=== PATIENT | male | born 1960 | race Caucasian/White ===

== ENCOUNTER 2023-08-21 00:55 | Inpatient (IN) | payer MEDICAID ==
[~2023-08-21] VITALS: Ht 188 cm; Wt 75.7 kg
[2023-08-21] VITALS (67 sets, daily range): BP systolic 48–201; BP diastolic 32–113; PULSE 37–114; RESP 0–22; TEMP 90.2–100.4
[2023-08-21] MEDS: DIPHENHYDRAMINE 50MG/ML VIAL IV ONE (01:59)
[2023-08-21] MEDS: LORAZEPAM 2MG/ML INJ IV ONE (01:59)
[2023-08-21] MEDS: HALOPERIDOL LACTATE 5MG/ML VIAL IM ONE (01:59)
[2023-08-21 02:11] LABS: BASOPHILS % 0.3 % (0.0-2.0); DIFFERENTIAL COMMENT 0; HEMATOCRIT. 42.5 % (42.0-52.0); HEMOGLOBIN. 12.9 g/dL (14.0-18.0); LYMPHOCYTES % 13.4 % (20.0-50.0); MEAN CORPUSCULAR HEMOGLOBIN 27.6 pg (28.0-32.0); MEAN CORPUSCULAR HGB CONC 30.5 g/dL (31.0-37.0); MEAN CORPUSCULAR VOLUME 90.7 fL (80.0-94.0); MEAN PLATELET VOLUME 11.2 fl (7.4-10.4); MONOCYTES % 3.8 % (2.0-8.0); NEUTROPHILS % 82.5 % (40.0-76.0); PLATELET 100 x1000/uL (130-400); RED BLOOD CELL COUNT 4.68 mill/uL (4.7-6.1); RED CELL DISTRIBUTION WIDTH 15.6 % (11.6-14.6); WHITE BLOOD COUNT 4.8 x1000/uL (4.5-11.0)
[2023-08-21 02:23] LABS: AMMONIA < 17 uMol/L (<32)
[2023-08-21 02:30] LABS: ALANINE AMINOTRANSFERASE 82 IU/L (10-49); ALBUMIN 4.2 g/dL (3.2-4.8); ASPARTATE AMINOTRANSFERASE 84 IU/L (<34); BILIRUBIN TOTAL 0.3 mg/dL (0.1-1.0); CALCIUM 8.9 mg/dL (8.7-10.4); CARBON DIOXIDE 24 mEq/L (21-32); CHLORIDE 95 mEq/L (98-107); CREATININE 2.7 mg/dL (0.6-1.3); POTASSIUM 4.7 mEq/L (3.5-5.1); SODIUM 131 mEq/L (136-145); THYROID STIMULATING HORMONE 1.63 uIU/mL (0.55-4.78); TROPONIN I HIGH SENSITIVITY 14 ng/L (3.0-53); UREA NITROGEN BLOOD 40 mg/dL (9-23)
[2023-08-21 02:38] LABS: *AMPHETAMINES SCREEN URINE NEGATIVE (NEGATIVE); *BARBITURATES SCREEN URINE NEGATIVE (NEGATIVE); *BENZODIAZEPINES SCREEN URINE NEGATIVE (NEGATIVE); *COCAINE SCREEN URINE PRESUMPTIVE POSITIVE (NEGATIVE); CANNABINOID URINE SCREEN NEGATIVE (NEGATIVE); ECSTASY MDMA SCREEN URINE NEGATIVE (NEGATIVE); METHADONE URINE SCREEN Neg (NEGATIVE); OPIATES URINE SCREEN NEGATIVE (NEGATIVE); PHENCYCLIDINE URINE SCREEN NEGATIVE (NEGATIVE)
[2023-08-21] MEDS: SODIUM CHLORIDE 0.9% 1,000 ML IV ONE ×2 (02:51)
[2023-08-21 03:00] LABS: ETHANOL BLOOD < 10 mg/dL (<10)
[2023-08-21] MEDS ORDERED: NOREPINEPHRINE 8 MG in DEXT 5% WATER 242 ML IV PRN (03:00)
[2023-08-21 03:06] LABS: GLUCOSE 956 mg/dL (70-105)
[2023-08-21] MEDS: NOREPINEPHRINE 8MG/250ML PMX 250 ML IV PRN ×2 (03:12→13:36)
[2023-08-21] MEDS ORDERED: INSULIN REGULAR (HUMULIN R) 300UNITS/3ML VIAL IV ONE (03:30)
[2023-08-21] MEDS ORDERED: ETOMIDATE 2MG/ML 10ML VIAL IV ONE (03:30)
[2023-08-21] MEDS ORDERED: SUCCINYLCHOLINE CHLORIDE 200MG/10ML IV ONE (03:30)
[2023-08-21 03:38] LABS: BG BASE EXCESS -12.8 mmol/L (-2.0-2.0); BG CARBOXYHEMOGLOBIN 0.9 % (0.5-1.5); BG DEOXYHEMOGLOBIN 4.5 % (0.0-5.0); BG FRACTION INSPIRED OXYGEN 36; BG HCO3 ACT 19.7 mmol/L (22.0-26.0); BG METHEMOGLOBIN 0.1 % (0.0-1.5); BG OXYGEN SATURATION 95.5 % (92.0-98.5); BG OXYHEMOGLOBIN 94.5 % (94.0-97.0); BG PCO2 84.5 mmHg (35.0-45.0); BG PH 6.986 (7.350-7.450); BG PO2 107.1 mmHg (75.0-100.0); BG SAMPLE SITE LEFT RADIAL; BG TOTAL HEMOGLOBIN 12.2 g/dL (12.0-18.0); BG VENT MODE NASAL CANNULA
[2023-08-21 03:44] LABS: PHOSPHORUS 6.4 mg/dL (2.5-4.9)
[2023-08-21] MEDS: VANCOMYCIN 1G PREMIX 200 ML IV SCH (03:47)
[2023-08-21] MEDS: PROPOFOL 10MG/ML 100ML 100 ML IV ONE (04:05)
[2023-08-21] MEDS: INSULIN REGULAR (HUMULIN R) 300UNITS/3ML VIAL IV NR (04:17)
[2023-08-21] MEDS ORDERED: DEXTROSE 50% WATER 50ML SYRINGE IV PRN ×2 (04:45→23:00)
[2023-08-21] MEDS ORDERED: KCL 20MEQ/100ML PREMIX 100 ML IV PRN (04:45)
[2023-08-21] MEDS ORDERED: BLOOD SUGAR DIAGNOSTIC STRIP TEST SCH (04:45)
[2023-08-21] MEDS ORDERED: INSULIN REGULAR (DRIP) 100 UNITS in SODIUM CHLORIDE 0.9% 99 ML IV SCH (04:45)
[2023-08-21] MEDS ORDERED: SODIUM CHLORIDE 0.9% 1,000 ML IV SCH (04:45)
[2023-08-21 05:33] LABS: BG CARBOXYHEMOGLOBIN 0.5 % (0.5-1.5); BG DEOXYHEMOGLOBIN 0.6 % (0.0-5.0); BG FRACTION INSPIRED OXYGEN 100; BG HCO3 ACT 18.7 mmol/L (22.0-26.0); BG METHEMOGLOBIN 0.1 % (0.0-1.5); BG OXYGEN SATURATION 99.4 % (92.0-98.5); BG OXYHEMOGLOBIN 98.8 % (94.0-97.0); BG PCO2 37.9 mmHg (35.0-45.0); BG SAMPLE SITE LEFT RADIAL; BG TOTAL HEMOGLOBIN 13.1 g/dL (12.0-18.0); BG VENT MODE VENT - AC
[2023-08-21] MEDS: PIPERACILLIN/TAZO 3.375G/50ML 50 ML IV SCH (06:10)
[2023-08-21] MEDS ORDERED: ONDANSETRON HCL 4MG/2ML INJ IV PRN (08:30)
[2023-08-21] MEDS ORDERED: MAGNESIUM/ALUMINUM HYDROXIDE/SIMETHICONE 30ML UDC PO PRN (08:30)
[2023-08-21] MEDS ORDERED: CLONIDINE 0.1MG TABLET PO PRN (08:30)
[2023-08-21] MEDS ORDERED: DOCUSATE SODIUM 100MG CAPSULE PO PRN (08:30)
[2023-08-21] MEDS ORDERED: NITROGLYCERIN 0.4MG TABLET SL SL PRN (08:30)
[2023-08-21] MEDS ORDERED: IPRATROPIUM/ALBUTEROL 0.5-3(2.5)MG/3ML NEB NEB PRN (08:30)
[2023-08-21] MEDS ORDERED: DOPAMINE 400MG/250ML PREMIX 250 ML IV PRN (08:45)
[2023-08-21] MEDS: BLOOD SUGAR DIAGNOSTIC STRIP TEST SCH (09:00)
[2023-08-21] MEDS ORDERED: SODIUM CHLORIDE 0.45% 1,000 ML IV ONE (09:00)
[2023-08-21] MEDS ORDERED: INSULIN REGULAR 100U/100ML PMX 100 ML IV SCH (09:00)
[2023-08-21 10:21] LABS: BG BASE EXCESS -4.7 mmol/L (-2.0-2.0); BG CARBOXYHEMOGLOBIN 0.1 % (0.5-1.5); BG DEOXYHEMOGLOBIN 1.3 % (0.0-5.0); BG FRACTION INSPIRED OXYGEN 40; BG HCO3 ACT 20.1 mmol/L (22.0-26.0); BG OXYGEN SATURATION 98.7 % (92.0-98.5); BG OXYHEMOGLOBIN 98.6 % (94.0-97.0); BG PCO2 36.2 mmHg (35.0-45.0); BG PH 7.362 (7.350-7.450); BG PO2 199.9 mmHg (75.0-100.0); BG SAMPLE SITE RIGHT RADIAL; BG TOTAL HEMOGLOBIN 11.8 g/dL (12.0-18.0); BG VENT MODE VENT - AC
[2023-08-21 10:46] LABS: FOLIC ACID (FOLATE) SERUM > 20.00 ng/mL (>5.38)
[2023-08-21 10:49] LABS: VITAMIN B12 SERUM > 2000 pg/mL (211-911)
[2023-08-21 10:53] LABS: IRON 28 ug/dL (65-175); T4 FREE 1.26 ng/dL (0.89-1.76); TOTAL IRON BINDING CAPACITY 359 ug/dl (250-425)
[2023-08-21] MEDS: IPRATROPIUM/ALBUTEROL 0.5-3(2.5)MG/3ML NEB HHN SCH (12:40)
[2023-08-21] MEDS: MEROPENEM 1,000 MG in SODIUM CHLORIDE 0.9% 100 ML IV SCH ×2 (12:42→23:54)
[2023-08-21] MEDS: SODIUM CHL 0.45% + KCL 20MEQ/L 1,000 ML IV SCH (12:43)
[2023-08-21] MEDS: INSULIN REGULAR 100U/100ML PMX 100 ML IV SCH (12:47)
[2023-08-21] MEDS: PANTOPRAZOLE SODIUM 40 MG/VIAL IV SCH (14:31)
[2023-08-21] MEDS: ENOXAPARIN 30MG/0.3ML SYR SUBCUT SCH (14:35)
[2023-08-21 18:15] LABS: CREATINE KINASE MB FRACTION 27.8 ng/mL (0.5-3.6)
[2023-08-21] MEDS: DEXT 5%/0.45% NACL KCL 20MEQ/L 1,000 ML IV SCH (18:29)
[2023-08-21] MEDS: DEXTROSE 50% WATER 50ML SYRINGE IV PRN (18:32)
[2023-08-22] VITALS (107 sets, daily range): BP systolic 55–211; BP diastolic 43–136; PULSE 65–99; RESP 0–26; TEMP 98.4–99.8
[2023-08-22 00:22] LABS: CREATINE KINASE MB FRACTION 9.9 ng/mL (0.5-3.6)
[2023-08-22 01:28] LABS: CALCIUM 7.8 mg/dL (8.7-10.4); CREATININE 2.7 mg/dL (0.6-1.3); POTASSIUM 4.1 mEq/L (3.5-5.1)
[2023-08-22] MEDS: DEXT 5%/0.45% NACL 1000ML 1,000 ML IV SCH (02:27)
[2023-08-22] MEDS: INSULIN GLARGINE 100 UNITS/ML SUBCUT SCH ×2 (02:27→22:00)
[2023-08-22] MEDS: PROPOFOL 10MG/ML 100ML 100 ML IV PRN (03:37)
[2023-08-22 07:15] LABS: BASOPHILS % 0.2 % (0.0-2.0); HEMATOCRIT. 37.4 % (42.0-52.0); HEMOGLOBIN. 12.3 g/dL (14.0-18.0); LYMPHOCYTES % 25.2 % (20.0-50.0); MEAN CORPUSCULAR HEMOGLOBIN 27.7 pg (28.0-32.0); MEAN CORPUSCULAR HGB CONC 32.9 g/dL (31.0-37.0); MEAN PLATELET VOLUME 10.8 fl (7.4-10.4); MONOCYTES % 5.9 % (2.0-8.0); NEUTROPHILS % 68.7 % (40.0-76.0); PLATELET 88 x1000/uL (130-400); RED BLOOD CELL COUNT 4.45 mill/uL (4.7-6.1); RED CELL DISTRIBUTION WIDTH 14.7 % (11.6-14.6); WHITE BLOOD COUNT 8.3 x1000/uL (4.5-11.0)
[2023-08-22] MEDS ORDERED: BLOOD SUGAR DIAGNOSTIC STRIP TEST SCH ×2 (07:50→12:00)
[2023-08-22 07:54] LABS: ALANINE AMINOTRANSFERASE 57 IU/L (10-49); ALBUMIN 3.2 g/dL (3.2-4.8); ASPARTATE AMINOTRANSFERASE 56 IU/L (<34); BILIRUBIN TOTAL 0.3 mg/dL (0.1-1.0); CALCIUM 7.8 mg/dL (8.7-10.4); CARBON DIOXIDE 19 mEq/L (21-32); CHLORIDE 109 mEq/L (98-107); CREATININE 2.6 mg/dL (0.6-1.3); PHOSPHORUS 2.6 mg/dL (2.5-4.9); POTASSIUM 4.3 mEq/L (3.5-5.1); PROTEIN TOTAL 5.5 g/dL (6.0-8.3); SODIUM 139 mEq/L (136-145); UREA NITROGEN BLOOD 40 mg/dL (9-23)
[2023-08-22 08:01] LABS: GLUCOSE 425 mg/dL (70-105)
[2023-08-22] MEDS: INSULIN LISPRO 100 UNITS/ML SUBCUT SCH ×2 (08:09→13:16)
[2023-08-22 10:44] LABS: BG BASE EXCESS -5.7 mmol/L (-2.0-2.0); BG CARBOXYHEMOGLOBIN 0.4 % (0.5-1.5); BG FRACTION INSPIRED OXYGEN 40; BG HCO3 ACT 18.1 mmol/L (22.0-26.0); BG METHEMOGLOBIN 0.2 % (0.0-1.5); BG OXYHEMOGLOBIN 98.4 % (94.0-97.0); BG PH 7.384 (7.350-7.450); BG PO2 199.4 mmHg (75.0-100.0); BG SAMPLE SITE RIGHT RADIAL; BG TOTAL HEMOGLOBIN 14.1 g/dL (12.0-18.0); BG VENT MODE VENT - AC
[2023-08-22] MEDS ORDERED: MIDAZOLAM 100MG/100ML PMX 100 ML IV PRN (11:45)
[2023-08-22] MEDS ORDERED: INSULIN LISPRO 100 UNITS/ML SUBCUT SCH (12:00)
[2023-08-22] MEDS: BLOOD SUGAR DIAGNOSTIC STRIP TEST SCH (12:00)
[2023-08-22] MEDS: SODIUM CHLORIDE 0.9% 1,000 ML IV ONE (13:14)
[2023-08-22] MEDS: MIDAZOLAM HCL 100 MG in SODIUM CHLORIDE 0.9% 100 ML IV PRN (15:16)
[2023-08-22 15:56] LABS: CLARITY URINE CLEAR (CLEAR); COLOR URINE YELLOW (YELLOW); GLUCOSE URINE 3+ (NEGATIVE); KETONES URINE NEGATIVE (NEGATIVE); LEUKOCYTE ESTERASE URINE TRACE (NEGATIVE); NITRITE URINE NEGATIVE (NEGATIVE); OCCULT BLOOD URINE 2+ (NEGATIVE); PH URINE 5.5 (4.5-8.0); PROTEIN URINE 1+ (NEGATIVE); SPECIFIC GRAVITY URINE 1.015 (1.005-1.030); UROBILINOGEN URINE 0.2 E.U./dL (0.2-1.0)
[2023-08-22 16:39] LABS: SQUAMOUS EPITHELIAL CELL URINE NONE SEEN /lpf (RARE/1+)
[2023-08-22 16:40] LABS: BACTERIA URINE NONE SEEN; YEAST URINE NONE SEEN
[2023-08-22 17:49] LABS: CALCIUM 7.8 mg/dL (8.7-10.4); CREATINE KINASE MB FRACTION 5.7 ng/mL (0.5-3.6); POTASSIUM 3.5 mEq/L (3.5-5.1)
[2023-08-22] MEDS: DEXTROSE 50% WATER 50ML SYRINGE IV PRN (21:18)
[2023-08-22] MEDS: SODIUM CHL 0.45% + KCL 20MEQ/L 1,000 ML IV ONE (21:47)
[2023-08-22] MEDS ORDERED: INSULIN GLARGINE 100 UNITS/ML SUBCUT SCH (22:00)
[2023-08-23] VITALS (102 sets, daily range): BP systolic 62–222; BP diastolic 49–125; PULSE 52–74; RESP 0–22; TEMP 97.6–98.9
[2023-08-23 05:43] LABS: BASOPHILS % 0.3 % (0.0-2.0); EOSINOPHILS % 0.2 % (0.0-5.0); HEMATOCRIT. 33.4 % (42.0-52.0); HEMOGLOBIN. 10.7 g/dL (14.0-18.0); LYMPHOCYTES % 29.7 % (20.0-50.0); MEAN CORPUSCULAR HEMOGLOBIN 27.8 pg (28.0-32.0); MEAN CORPUSCULAR HGB CONC 32.1 g/dL (31.0-37.0); MEAN CORPUSCULAR VOLUME 86.5 fL (80.0-94.0); MEAN PLATELET VOLUME 11.4 fl (7.4-10.4); MONOCYTES % 7.4 % (2.0-8.0); NEUTROPHILS % 62.4 % (40.0-76.0); PLATELET 64 x1000/uL (130-400); RED BLOOD CELL COUNT 3.86 mill/uL (4.7-6.1); RED CELL DISTRIBUTION WIDTH 14.9 % (11.6-14.6); WHITE BLOOD COUNT 6.1 x1000/uL (4.5-11.0)
[2023-08-23 05:54] LABS: ALANINE AMINOTRANSFERASE 66 IU/L (10-49); ALBUMIN 2.6 g/dL (3.2-4.8); ASPARTATE AMINOTRANSFERASE 119 IU/L (<34); BILIRUBIN TOTAL 0.3 mg/dL (0.1-1.0); CALCIUM 7.7 mg/dL (8.7-10.4); CARBON DIOXIDE 21 mEq/L (21-32); CHLORIDE 115 mEq/L (98-107); CREATININE 1.8 mg/dL (0.6-1.3); GLUCOSE 171 mg/dL (70-105); PHOSPHORUS 1.9 mg/dL (2.5-4.9); POTASSIUM 3.9 mEq/L (3.5-5.1); SODIUM 145 mEq/L (136-145); TRIGLYCERIDE 50 mg/dL (0-150); UREA NITROGEN BLOOD 33 mg/dL (9-23)
[2023-08-23] MEDS: MIDODRINE HCL 2.5MG TABLET PO SCH (12:45)
[2023-08-23] MEDS: MEROPENEM 1G/100ML 100 ML IV SCH (20:35)
[2023-08-23] MEDS ORDERED: FENTANYL 2500MCG/250ML PMX 250 ML IV ONE (23:15)
[2023-08-24] VITALS (77 sets, daily range): BP systolic 60–266; BP diastolic 31–171; PULSE 41–63; RESP 0–24; TEMP 97.2–98.6; O2SAT 99–100
[2023-08-24] MEDS: FENTANYL CITRATE 2,500 MCG in SODIUM CHLORIDE 0.9% 200 ML IV PRN (00:05)
[2023-08-24] MEDS: PROPOFOL 10MG/ML 100ML 100 ML IV PRN (00:50)
[2023-08-24 06:56] LABS: BASOPHILS % 0.2 % (0.0-2.0); EOSINOPHILS % 0.6 % (0.0-5.0); HEMATOCRIT. 28.1 % (42.0-52.0); HEMOGLOBIN. 9.3 g/dL (14.0-18.0); LYMPHOCYTES % 34.4 % (20.0-50.0); MEAN CORPUSCULAR HEMOGLOBIN 27.3 pg (28.0-32.0); MEAN CORPUSCULAR VOLUME 82.7 fL (80.0-94.0); MEAN PLATELET VOLUME 10.5 fl (7.4-10.4); MONOCYTES % 4.9 % (2.0-8.0); NEUTROPHILS % 59.9 % (40.0-76.0); PLATELET 53 x1000/uL (130-400); RED CELL DISTRIBUTION WIDTH 14.9 % (11.6-14.6); WHITE BLOOD COUNT 5.1 x1000/uL (4.5-11.0)
[2023-08-24 07:17] LABS: ALANINE AMINOTRANSFERASE 102 IU/L (10-49); ALBUMIN 2.8 g/dL (3.2-4.8); ASPARTATE AMINOTRANSFERASE 208 IU/L (<34); BILIRUBIN TOTAL 0.3 mg/dL (0.1-1.0); CALCIUM 8.3 mg/dL (8.7-10.4); CARBON DIOXIDE 20 mEq/L (21-32); CHLORIDE 115 mEq/L (98-107); CREATININE 1.2 mg/dL (0.6-1.3); GLUCOSE 163 mg/dL (70-105); PHOSPHORUS 1.5 mg/dL (2.5-4.9); POTASSIUM 3.7 mEq/L (3.5-5.1); PROTEIN TOTAL 5.1 g/dL (6.0-8.3); SODIUM 145 mEq/L (136-145); UREA NITROGEN BLOOD 29 mg/dL (9-23)
[2023-08-24] MEDS: DEXMEDETOMIDINE 400 MCG/100 ML 100 ML IV PRN (11:35)
[2023-08-24] MEDS: LACTATED RINGERS 1,000 ML IV ONE (16:17)
[2023-08-24] MEDS: MIDODRINE HCL 5MG TABLET PO SCH (17:00)
[2023-08-24] MEDS: BLOOD SUGAR DIAGNOSTIC STRIP TEST SCH (18:21)
[2023-08-24] MEDS: MEROPENEM 1G/100ML 100 ML IV SCH (18:33)
[2023-08-24] MEDS: GUAIFENESIN 200MG/10ML SUGAR FREE UDC PO PRN (22:30)
[2023-08-25] VITALS (30 sets, daily range): BP systolic 73–110; BP diastolic 39–73; PULSE 44–78; RESP 9–28; TEMP 97–97.8; O2SAT 97–100
[2023-08-25 05:14] LABS: BASOPHILS % 0.5 % (0.0-2.0); EOSINOPHILS % 0.6 % (0.0-5.0); HEMATOCRIT. 27.9 % (42.0-52.0); HEMOGLOBIN. 8.9 g/dL (14.0-18.0); LYMPHOCYTES % 28.1 % (20.0-50.0); MEAN CORPUSCULAR HEMOGLOBIN 27.2 pg (28.0-32.0); MEAN CORPUSCULAR HGB CONC 31.9 g/dL (31.0-37.0); MEAN CORPUSCULAR VOLUME 85.2 fL (80.0-94.0); MEAN PLATELET VOLUME 11.3 fl (7.4-10.4); MONOCYTES % 5.3 % (2.0-8.0); NEUTROPHILS % 65.5 % (40.0-76.0); PLATELET 54 x1000/uL (130-400); RED BLOOD CELL COUNT 3.27 mill/uL (4.7-6.1); RED CELL DISTRIBUTION WIDTH 15.5 % (11.6-14.6); WHITE BLOOD COUNT 3.2 x1000/uL (4.5-11.0)
[2023-08-25 05:53] LABS: ALANINE AMINOTRANSFERASE 369 IU/L (10-49); ALBUMIN 2.8 g/dL (3.2-4.8); ASPARTATE AMINOTRANSFERASE 751 IU/L (<34); BILIRUBIN TOTAL 0.2 mg/dL (0.1-1.0); CALCIUM 8.2 mg/dL (8.7-10.4); CARBON DIOXIDE 21 mEq/L (21-32); CHLORIDE 111 mEq/L (98-107); CREATININE 1.3 mg/dL (0.6-1.3); GLUCOSE 158 mg/dL (70-105); POTASSIUM 4.2 mEq/L (3.5-5.1); PROTEIN TOTAL 5.2 g/dL (6.0-8.3); SODIUM 139 mEq/L (136-145); TRIGLYCERIDE 77 mg/dL (0-150); UREA NITROGEN BLOOD 30 mg/dL (9-23)
[2023-08-25] MEDS: INSULIN LISPRO 100 UNITS/ML SUBCUT SCH (23:10)
[2023-08-25] MEDS: ACETAMINOPHEN 325MG TABLET PO PRN (23:23)
[2023-08-26] VITALS (78 sets, daily range): BP systolic 55–247; BP diastolic 40–126; PULSE 52–88; RESP 10–26; TEMP 90.5–100.1
[2023-08-26 05:55] LABS: BASOPHILS % 0.2 % (0.0-2.0); EOSINOPHILS % 0.5 % (0.0-5.0); HEMATOCRIT. 25.9 % (42.0-52.0); HEMOGLOBIN. 8.4 g/dL (14.0-18.0); LYMPHOCYTES % 33.6 % (20.0-50.0); MEAN CORPUSCULAR HEMOGLOBIN 27.3 pg (28.0-32.0); MEAN CORPUSCULAR HGB CONC 32.3 g/dL (31.0-37.0); MEAN CORPUSCULAR VOLUME 84.8 fL (80.0-94.0); MEAN PLATELET VOLUME 10.5 fl (7.4-10.4); MONOCYTES % 8.8 % (2.0-8.0); NEUTROPHILS % 56.9 % (40.0-76.0); PLATELET 59 x1000/uL (130-400); RED BLOOD CELL COUNT 3.05 mill/uL (4.7-6.1); RED CELL DISTRIBUTION WIDTH 15.1 % (11.6-14.6); WHITE BLOOD COUNT 2.8 x1000/uL (4.5-11.0)
[2023-08-26] MEDS ORDERED: NALOXONE HCL 0.4MG/ML 1ML VIAL IV NR (06:00)
[2023-08-26 06:21] LABS: ALANINE AMINOTRANSFERASE 273 IU/L (10-49); ASPARTATE AMINOTRANSFERASE 284 IU/L (<34); BILIRUBIN TOTAL 0.2 mg/dL (0.1-1.0); CALCIUM 8.6 mg/dL (8.7-10.4); CARBON DIOXIDE 23 mEq/L (21-32); CHLORIDE 112 mEq/L (98-107); CREATININE 1.4 mg/dL (0.6-1.3); PHOSPHORUS 2.7 mg/dL (2.5-4.9); POTASSIUM 3.9 mEq/L (3.5-5.1); PROTEIN TOTAL 5.6 g/dL (6.0-8.3); SODIUM 141 mEq/L (136-145); UREA NITROGEN BLOOD 29 mg/dL (9-23)
[2023-08-26 06:25] LABS: BG BASE EXCESS -7.3 mmol/L (-2.0-2.0); BG CARBOXYHEMOGLOBIN 0.9 % (0.5-1.5); BG DEOXYHEMOGLOBIN 9.8 % (0.0-5.0); BG METHEMOGLOBIN 0.3 % (0.0-1.5); BG OXYGEN SATURATION 90.1 % (92.0-98.5); BG PCO2 55.6 mmHg (35.0-45.0); BG PH 7.195 (7.350-7.450); BG PO2 66.6 mmHg (75.0-100.0); BG SAMPLE SITE RIGHT RADIAL; BG TOTAL HEMOGLOBIN 10.8 g/dL (12.0-18.0); BG VENT MODE ROOM AIR
[2023-08-26] MEDS: DEXT 5%/0.9% NACL 1,000 ML IV SCH (06:43)
[2023-08-26 06:53] LABS: GLUCOSE 9 mg/dL (70-105)
[2023-08-26] MEDS: PROPOFOL 10MG/ML 100ML 100 ML IV PRN (06:57)
[2023-08-26 08:08] LABS: BASOPHILS % 0.2 % (0.0-2.0); EOSINOPHILS % 0.6 % (0.0-5.0); HEMATOCRIT. 30.2 % (42.0-52.0); HEMOGLOBIN. 10.1 g/dL (14.0-18.0); MEAN CORPUSCULAR HEMOGLOBIN 27.9 pg (28.0-32.0); MEAN CORPUSCULAR HGB CONC 33.5 g/dL (31.0-37.0); MEAN CORPUSCULAR VOLUME 83.3 fL (80.0-94.0); MEAN PLATELET VOLUME 10.2 fl (7.4-10.4); NEUTROPHILS % 57.2 % (40.0-76.0); PLATELET 62 x1000/uL (130-400); RED BLOOD CELL COUNT 3.62 mill/uL (4.7-6.1); RED CELL DISTRIBUTION WIDTH 15.2 % (11.6-14.6); WHITE BLOOD COUNT 2.5 x1000/uL (4.5-11.0)
[2023-08-26] MEDS: PIPERACILLIN/TAZO 3.375G/50ML 50 ML IV SCH (08:31)
[2023-08-26 08:38] LABS: ALANINE AMINOTRANSFERASE 289 IU/L (10-49); ALBUMIN 3.1 g/dL (3.2-4.8); AMMONIA 18 uMol/L (<32); ASPARTATE AMINOTRANSFERASE 296 IU/L (<34); BILIRUBIN TOTAL 0.3 mg/dL (0.1-1.0); CALCIUM 8.3 mg/dL (8.7-10.4); CARBON DIOXIDE 22 mEq/L (21-32); CHLORIDE 111 mEq/L (98-107); CREATININE 1.5 mg/dL (0.6-1.3); GLUCOSE 88 mg/dL (70-105); POTASSIUM 3.8 mEq/L (3.5-5.1); PROTEIN TOTAL 5.5 g/dL (6.0-8.3); SODIUM 138 mEq/L (136-145); UREA NITROGEN BLOOD 27 mg/dL (9-23)
[2023-08-26 09:21] LABS: BG BASE EXCESS -5.5 mmol/L (-2.0-2.0); BG CARBOXYHEMOGLOBIN 0.2 % (0.5-1.5); BG DEOXYHEMOGLOBIN 1.8 % (0.0-5.0); BG FRACTION INSPIRED OXYGEN 70; BG HCO3 ACT 19.3 mmol/L (22.0-26.0); BG METHEMOGLOBIN 0.3 % (0.0-1.5); BG OXYGEN SATURATION 98.2 % (92.0-98.5); BG OXYHEMOGLOBIN 97.7 % (94.0-97.0); BG SAMPLE SITE RIGHT RADIAL; BG TOTAL HEMOGLOBIN 9.8 g/dL (12.0-18.0); BG VENT MODE VENT - AC
[2023-08-26] MEDS: LORAZEPAM 2MG/ML INJ IV PRN (09:39)
[2023-08-26] MEDS: LACTATED RINGERS 1,000 ML IV NR (10:59)
[2023-08-26] MEDS ORDERED: LORAZEPAM 0.5MG TABLET PO PRN (11:00)
[2023-08-26] MEDS: NOREPINEPHRINE 8MG/250ML PMX 250 ML IV PRN (11:05)
[2023-08-26] MEDS: INSULIN LISPRO 100 UNITS/ML SUBCUT SCH (12:00)
[2023-08-27] VITALS (106 sets, daily range): BP systolic 69–162; BP diastolic 48–99; PULSE 64–88; RESP 10–25; TEMP 95.4–99.6
[2023-08-27 04:45] LABS: BASOPHILS % 0.2 % (0.0-2.0); DIFFERENTIAL COMMENT 0; EOSINOPHILS % 0.5 % (0.0-5.0); HEMOGLOBIN. 10.8 g/dL (14.0-18.0); LYMPHOCYTES % 8.8 % (20.0-50.0); MEAN CORPUSCULAR HEMOGLOBIN 27.3 pg (28.0-32.0); MEAN CORPUSCULAR HGB CONC 32.6 g/dL (31.0-37.0); MEAN CORPUSCULAR VOLUME 83.8 fL (80.0-94.0); MEAN PLATELET VOLUME 9.9 fl (7.4-10.4); MONOCYTES % 3.6 % (2.0-8.0); NEUTROPHILS % 86.9 % (40.0-76.0); PLATELET 73 x1000/uL (130-400); RED BLOOD CELL COUNT 3.94 mill/uL (4.7-6.1); RED CELL DISTRIBUTION WIDTH 15.2 % (11.6-14.6); WHITE BLOOD COUNT 9.1 x1000/uL (4.5-11.0)
[2023-08-27 05:02] LABS: ALANINE AMINOTRANSFERASE 190 IU/L (10-49); ALBUMIN 2.9 g/dL (3.2-4.8); ASPARTATE AMINOTRANSFERASE 128 IU/L (<34); BILIRUBIN TOTAL 0.2 mg/dL (0.1-1.0); CARBON DIOXIDE 21 mEq/L (21-32); CHLORIDE 115 mEq/L (98-107); CREATININE 1.4 mg/dL (0.6-1.3); PHOSPHORUS 1.9 mg/dL (2.5-4.9); POTASSIUM 4.4 mEq/L (3.5-5.1); PROTEIN TOTAL 5.5 g/dL (6.0-8.3); SODIUM 143 mEq/L (136-145); TRIGLYCERIDE 104 mg/dL (0-150); UREA NITROGEN BLOOD 23 mg/dL (9-23)
[2023-08-27 05:03] LABS: GLUCOSE 249 mg/dL (70-105)
[2023-08-27] MEDS ORDERED: PROPOFOL 10MG/ML 100ML 100 ML IV PRN (08:15)
[2023-08-27 08:26] LABS: BG BASE EXCESS -3.6 mmol/L (-2.0-2.0); BG CARBOXYHEMOGLOBIN 0.3 % (0.5-1.5); BG DEOXYHEMOGLOBIN 3.7 % (0.0-5.0); BG FRACTION INSPIRED OXYGEN 40; BG HCO3 ACT 19.3 mmol/L (22.0-26.0); BG METHEMOGLOBIN 0.3 % (0.0-1.5); BG OXYGEN SATURATION 96.3 % (92.0-98.5); BG OXYHEMOGLOBIN 95.7 % (94.0-97.0); BG PCO2 28.1 mmHg (35.0-45.0); BG PH 7.455 (7.350-7.450); BG PO2 85.2 mmHg (75.0-100.0); BG SAMPLE SITE RIGHT RADIAL; BG TOTAL HEMOGLOBIN 10.4 g/dL (12.0-18.0)
[2023-08-27 12:35] LABS: BG BASE EXCESS -3.3 mmol/L (-2.0-2.0); BG CARBOXYHEMOGLOBIN 0.3 % (0.5-1.5); BG DEOXYHEMOGLOBIN 2.5 % (0.0-5.0); BG FRACTION INSPIRED OXYGEN 40; BG METHEMOGLOBIN 0.3 % (0.0-1.5); BG OXYGEN SATURATION 97.5 % (92.0-98.5); BG OXYHEMOGLOBIN 96.9 % (94.0-97.0); BG PCO2 30.8 mmHg (35.0-45.0); BG PO2 102.7 mmHg (75.0-100.0); BG SAMPLE SITE RIGHT RADIAL; BG TOTAL HEMOGLOBIN 12.5 g/dL (12.0-18.0); BG VENT MODE VENT - CPAP
[2023-08-27] MEDS: SODIUM PHOSPHATE 30 MMOL in DEXT 5% WATER 490 ML IV NR (13:36)
[2023-08-28] VITALS (68 sets, daily range): BP systolic 66–111; BP diastolic 42–90; PULSE 46–73; RESP 12–25; TEMP 93–97.8
[2023-08-28 05:38] LABS: BASOPHILS % 0.3 % (0.0-2.0); EOSINOPHILS % 0.9 % (0.0-5.0); HEMATOCRIT. 25.2 % (42.0-52.0); HEMOGLOBIN. 8.3 g/dL (14.0-18.0); LYMPHOCYTES % 8.6 % (20.0-50.0); MEAN CORPUSCULAR HEMOGLOBIN 27.9 pg (28.0-32.0); MEAN CORPUSCULAR HGB CONC 32.9 g/dL (31.0-37.0); MEAN CORPUSCULAR VOLUME 84.8 fL (80.0-94.0); MEAN PLATELET VOLUME 9.4 fl (7.4-10.4); MONOCYTES % 5.4 % (2.0-8.0); NEUTROPHILS % 84.8 % (40.0-76.0); PLATELET 59 x1000/uL (130-400); RED BLOOD CELL COUNT 2.97 mill/uL (4.7-6.1); RED CELL DISTRIBUTION WIDTH 15.3 % (11.6-14.6); WHITE BLOOD COUNT 10.8 x1000/uL (4.5-11.0)
[2023-08-28 05:51] LABS: CALCIUM 7.8 mg/dL (8.7-10.4); CREATININE 1.3 mg/dL (0.6-1.3); POTASSIUM 3.9 mEq/L (3.5-5.1)
[2023-08-28] MEDS ORDERED: LIDOCAINE HCL 1% 10 MG/ML 10ML VIAL ONE (07:56)
[2023-08-29] VITALS: BP 91/62; PULSE 52; RESP 16; TEMP 97.9
[2023-08-29 04:00] VITALS: BP 101/63; PULSE 66; RESP 20; TEMP 97.7
[2023-08-29 07:08] LABS: ALANINE AMINOTRANSFERASE 101 IU/L (10-49); ALBUMIN 2.6 g/dL (3.2-4.8); ASPARTATE AMINOTRANSFERASE 34 IU/L (<34); BILIRUBIN TOTAL 0.2 mg/dL (0.1-1.0); CALCIUM 8.2 mg/dL (8.7-10.4); CARBON DIOXIDE 21 mEq/L (21-32); CHLORIDE 109 mEq/L (98-107); CREATININE 1.4 mg/dL (0.6-1.3); GLUCOSE 244 mg/dL (70-105); PHOSPHORUS 3.3 mg/dL (2.5-4.9); POTASSIUM 4.5 mEq/L (3.5-5.1); SODIUM 137 mEq/L (136-145); UREA NITROGEN BLOOD 26 mg/dL (9-23)
[2023-08-29 07:17] LABS: BASOPHILS % 0.2 % (0.0-2.0); EOSINOPHILS % 1.3 % (0.0-5.0); HEMATOCRIT. 26.3 % (42.0-52.0); HEMOGLOBIN. 8.6 g/dL (14.0-18.0); LYMPHOCYTES % 8.6 % (20.0-50.0); MEAN CORPUSCULAR HEMOGLOBIN 27.2 pg (28.0-32.0); MEAN CORPUSCULAR HGB CONC 32.8 g/dL (31.0-37.0); MEAN PLATELET VOLUME 9.5 fl (7.4-10.4); NEUTROPHILS % 85.9 % (40.0-76.0); PLATELET 68 x1000/uL (130-400); RED BLOOD CELL COUNT 3.17 mill/uL (4.7-6.1); RED CELL DISTRIBUTION WIDTH 15.6 % (11.6-14.6); WHITE BLOOD COUNT 7.2 x1000/uL (4.5-11.0)
[2023-08-29 08:00] VITALS: BP 117/54; PULSE 82; RESP 18; TEMP 97.9
[2023-08-29 12:00] VITALS: BP 130/80; PULSE 79; RESP 20; TEMP 97.4
[2023-08-29 16:00] VITALS: BP 131/78; PULSE 79; RESP 22; TEMP 97.9
[2023-08-29 20:00] VITALS: BP 93/51; PULSE 68; RESP 18; TEMP 97.7
[2023-08-30] VITALS: BP 110/65; PULSE 67; RESP 18; TEMP 97.3
[2023-08-30 04:00] VITALS: BP 127/83; PULSE 67; TEMP 97.6
[2023-08-30 08:00] VITALS: BP 128/79; PULSE 76; RESP 18; TEMP 96
[2023-08-30 09:03] LABS: BASOPHILS % 0.3 % (0.0-2.0); EOSINOPHILS % 1.4 % (0.0-5.0); HEMATOCRIT. 29.8 % (42.0-52.0); HEMOGLOBIN. 9.5 g/dL (14.0-18.0); LYMPHOCYTES % 16.4 % (20.0-50.0); MEAN CORPUSCULAR HEMOGLOBIN 26.8 pg (28.0-32.0); MEAN CORPUSCULAR HGB CONC 31.7 g/dL (31.0-37.0); MEAN CORPUSCULAR VOLUME 84.4 fL (80.0-94.0); MEAN PLATELET VOLUME 9.2 fl (7.4-10.4); MONOCYTES % 4.2 % (2.0-8.0); NEUTROPHILS % 77.7 % (40.0-76.0); PLATELET 100 x1000/uL (130-400); RED BLOOD CELL COUNT 3.53 mill/uL (4.7-6.1); RED CELL DISTRIBUTION WIDTH 15.3 % (11.6-14.6); WHITE BLOOD COUNT 6.1 x1000/uL (4.5-11.0)
[2023-08-30 09:35] LABS: CALCIUM 8.1 mg/dL (8.7-10.4); CREATININE 1.5 mg/dL (0.6-1.3); POTASSIUM 4.8 mEq/L (3.5-5.1)
[2023-08-30 12:00] VITALS: BP 157/89; PULSE 65; RESP 18; TEMP 96.2
[2023-08-30] MEDS: ACETAMINOPHEN 325MG TABLET PO PRN (14:39)
[2023-08-30 16:00] VITALS: BP 122/74; PULSE 65; RESP 18; TEMP 97.8
[2023-08-30 20:00] VITALS: BP 106/62; PULSE 67; RESP 18; TEMP 97.3
[2023-08-31] VITALS: BP 102/63; PULSE 65; RESP 18; TEMP 97.5
[2023-08-31 04:00] VITALS: BP 138/80; PULSE 68; RESP 20; TEMP 97.4
[2023-08-31 06:43] LABS: CALCIUM 8.5 mg/dL (8.7-10.4); CREATININE 1.3 mg/dL (0.6-1.3); POTASSIUM 5.1 mEq/L (3.5-5.1)
[2023-08-31 06:56] LABS: BASOPHILS % 0.5 % (0.0-2.0); EOSINOPHILS % 1.4 % (0.0-5.0); HEMATOCRIT. 27.3 % (42.0-52.0); HEMOGLOBIN. 8.9 g/dL (14.0-18.0); LYMPHOCYTES % 14.9 % (20.0-50.0); MEAN CORPUSCULAR HEMOGLOBIN 27.3 pg (28.0-32.0); MEAN CORPUSCULAR HGB CONC 32.7 g/dL (31.0-37.0); MEAN CORPUSCULAR VOLUME 83.5 fL (80.0-94.0); MEAN PLATELET VOLUME 9.4 fl (7.4-10.4); MONOCYTES % 5.4 % (2.0-8.0); NEUTROPHILS % 77.8 % (40.0-76.0); PLATELET 109 x1000/uL (130-400); RED BLOOD CELL COUNT 3.28 mill/uL (4.7-6.1); RED CELL DISTRIBUTION WIDTH 15.2 % (11.6-14.6); WHITE BLOOD COUNT 5.6 x1000/uL (4.5-11.0)
[2023-08-31 08:00] VITALS: BP 116/72; PULSE 70; RESP 18; TEMP 97.5
[2023-08-31 12:00] VITALS: BP 111/73; PULSE 75; RESP 20; TEMP 98.7
[2023-08-31 16:00] VITALS: BP 130/78; PULSE 80; RESP 20; TEMP 97.4
[2023-09-01] VITALS: BP 160/98; PULSE 66; RESP 20; TEMP 98
[2023-09-01 04:00] VITALS: BP 148/93; PULSE 64; RESP 19; TEMP 98.7
[2023-09-01 06:50] LABS: BASOPHILS % 0.4 % (0.0-2.0); EOSINOPHILS % 0.9 % (0.0-5.0); HEMATOCRIT. 25.9 % (42.0-52.0); HEMOGLOBIN. 8.5 g/dL (14.0-18.0); LYMPHOCYTES % 20.2 % (20.0-50.0); MEAN CORPUSCULAR HEMOGLOBIN 27.5 pg (28.0-32.0); MEAN CORPUSCULAR HGB CONC 32.8 g/dL (31.0-37.0); MEAN CORPUSCULAR VOLUME 83.9 fL (80.0-94.0); MEAN PLATELET VOLUME 9.3 fl (7.4-10.4); MONOCYTES % 6.3 % (2.0-8.0); NEUTROPHILS % 72.2 % (40.0-76.0); PLATELET 142 x1000/uL (130-400); RED BLOOD CELL COUNT 3.09 mill/uL (4.7-6.1); RED CELL DISTRIBUTION WIDTH 14.9 % (11.6-14.6); WHITE BLOOD COUNT 5.6 x1000/uL (4.5-11.0)
[2023-09-01 08:00] VITALS: BP 135/86; PULSE 75; RESP 18; TEMP 97.7
[2023-09-01 12:00] VITALS: BP 146/92; PULSE 75; RESP 18; TEMP 97.6
[2023-09-01 12:14] LABS: CALCIUM 8.3 mg/dL (8.7-10.4); CARBON DIOXIDE 22 mEq/L (21-32); CHLORIDE 109 mEq/L (98-107); CREATININE 1.2 mg/dL (0.6-1.3); GLUCOSE 139 mg/dL (70-105); POTASSIUM 5.4 mEq/L (3.5-5.1); SODIUM 136 mEq/L (136-145); UREA NITROGEN BLOOD 21 mg/dL (9-23)
[2023-09-01] MEDS: SODIUM POLYSTYRENE SULFONATE 15 G/60 ML BOT PO NR (13:00)
[2023-09-01 16:00] VITALS: BP 134/79; PULSE 80; RESP 18; TEMP 97.2
[2023-09-01 20:04] VITALS: BP 134/79; PULSE 80; TEMP 97.2; O2SAT 98
== END 2023-09-01 21:33 | DRG 720 ==
LOC: CANBEDREQ 01:11 → ER 01:22 → EDBD 04:46 → MICUSO 04:46 → EDBEDREQ 04:50 → CVICU 15:40 → 8WST 08-25 04:57 → MICUNO 08-26 05:50 → MICUSO 08-27 19:40 → 7WST 08-28 23:54 → 6EST 08-31 23:33
PROVIDERS: ADMIT Internal Medicine; ATTEND Internal Medicine
PROC: 5A1945Z Respiratory Ventilation, 24-96 Consecutive Hours (ICD-10-PCS; principal; 2023-08-21)
PROC: 0BH17EZ Insertion of Endotracheal Airway into Trachea, Via Natural or Artificial Opening (ICD-10-PCS; 2023-08-21)
PROC: 0BH17EZ Insertion of Endotracheal Airway into Trachea, Via Natural or Artificial Opening (ICD-10-PCS; 2023-08-21)
PROC: 5A1945Z Respiratory Ventilation, 24-96 Consecutive Hours (ICD-10-PCS; 2023-08-26)
DX: A41.9 Sepsis, unspecified organism (principal); N17.0 Acute kidney failure with tubular necrosis; J69.0 Pneumonitis due to inhalation of food and vomit; I21.4 Non-ST elevation (NSTEMI) myocardial infarction; G92.8 Other toxic encephalopathy; J96.01 Acute respiratory failure with hypoxia; J96.02 Acute respiratory failure with hypercapnia; E11.10 Type 2 diabetes mellitus with ketoacidosis without coma; M62.82 Rhabdomyolysis; D63.8 Anemia in other chronic diseases classified elsewhere; E87.1 Hypo-osmolality and hyponatremia; F14.10 Cocaine abuse, uncomplicated; N39.0 Urinary tract infection, site not specified; N18.9 Chronic kidney disease, unspecified; I44.7 Left bundle-branch block, unspecified; T40.5X1A Poisoning by cocaine, accidental (unintentional), initial encounter; E86.0 Dehydration; E11.649 Type 2 diabetes mellitus with hypoglycemia without coma; E11.22 Type 2 diabetes mellitus with diabetic chronic kidney disease; Z87.891 Personal history of nicotine dependence; Z79.899 Other long term (current) drug therapy; Z79.4 Long term (current) use of insulin; Z59.00 Homelessness unspecified
CPT/HCPCS: 31500; 36415; 36600; 71045; 80048; 80053; 80305; 80320; 81003; 82010; 82140; 82375; 82550; 82553; 82607; 82746; 82805; 82962; 83036; 83540; 83550; 83605; 83735; 83880; 83930; 84100; 84145; 84439; 84443; 84478; 84484; 85025; 86850; 86900; 87070; 87106; 87804; 92523; 92610; 93005; 93306; 93970; 94002; 94003; 94640; 97116; 97162; 97166; 97168; 97530; 97535; 99291; C9113; J1200; J1630; J1650; J1815; J2060; J2185; J2250; J2543; J2704; J3370; J3480; J3490; J7030; J7042; J7050; J7060; Q9957; G0480